=== PATIENT | male | born 1980 | race Caucasian/White ===

== ENCOUNTER 2019-06-11 09:26 | Outpatient (CLI) | payer MEDICAID, SELFPAY ==
[2019-06-11 10:14] LABS: HCT 48.6 % (40.0-50.0); HGB 16.7 g/dL (13.5-17.5)
[2019-06-11 11:26] LABS: Calculated LDL 61 mg/dL; Cholesterol 120 mg/dL (50-200); HDL Cholesterol 35 mg/dL (40-60); TSH 2.53 uIU/mL (0.36-3.74); Triglyceride 122 mg/dL (30-150)
== END 2019-06-11 09:46 ==
PROVIDERS: PCP Internal Medicine; Visit Provider Internal Medicine
DX: R63.5 Abnormal weight gain (principal); Z13.220 Encounter for screening for lipoid disorders; Z98.84 Bariatric surgery status
CPT/HCPCS: 36415; 80061; 84443; 85014; 85018

== ENCOUNTER 2022-06-21 02:18 | Outpatient (CLI) | payer MEDICAID, SELFPAY ==
[2022-06-21 10:55] LABS: HCT 48.7 % (40.0-50.0); HGB 16.6 g/dL (13.5-17.5); MCH 30.3 pg (27.0-33.0); MCHC 34.1 % (32.0-36.0); MCV 89 fL (80-95); Platelet Count 198 10^3/uL (130-400); RBC 5.47 10^6/uL (4.36-5.78); RDW 11.9 % (11.8-14.1); RDW-SD 38.8 fL; WBC 5.39 10^3/uL (4.4-10.8)
[2022-06-21 11:18] LABS: Hemoglobin A1C 5.1 % (<5.7)
[2022-06-21 12:14] LABS: ALT 37 U/L (16-63); AST 17 U/L (15-37); Albumin 4.2 g/dL (3.4-5.0); Alkaline Phosphatase 60 U/L (46-116); Anion Gap 6.1 mmol/L (3-11); BUN 23 mg/dL (7-18); Bilirubin, Total 0.9 mg/dL (0.2-1.0); CO2 28.9 mmol/L (21.0-32.0); CREATININE 0.9 mg/dL (0.70-1.30); Calcium 8.9 mg/dL (8.5-10.1); Calculated LDL 66 mg/dL (<100); Chloride 105 mmol/L (98-107); Cholesterol 127 mg/dL (<200); Estimated GFR 108.01 (mL/min/1.73m2); Glucose 96 mg/dL (74-106); HDL Cholesterol 39 mg/dL (40-60); Potassium 4.2 mmol/L (3.5-5.1); Sodium 140 mmol/L (136-145); Total Protein 7.6 g/dL (6.4-8.2); Triglyceride 111 mg/dL (<150); Vitamin B12 353 pg/mL (193-986)
[2022-06-22 11:15] LABS: Hepatitis C Ab w Rflx HCV PCR Negative (Negative)
== END 2022-06-21 02:19 | disposition home or self-care (01) ==
LOC: LBO 02:18
PROVIDERS: PCP Nurse Practitioner; Referring Provider Nurse Practitioner; Visit Provider Nurse Practitioner
DX: E66.9 Obesity, unspecified (principal); Z98.84 Bariatric surgery status; Z11.59 Encounter for screening for other viral diseases
CPT/HCPCS: 36415; 80053; 80061; 85027; 86803; 82607; 83036

== ENCOUNTER 2023-10-10 16:50 | Outpatient (CLI) | payer MEDICAID, SELFPAY ==
--- NOTE | 2023-10-10 16:45 | RT.EKG_ITS ---
APPROVED REPORT Exam: Resting ECG Reason for Exam: rare palpitations Patient Location: O HR:65 bpm ECG Measurements Heart Rate 65 AXIS MN 176 P 27 QRSd 104 QRS 32 QT 392 T 49 QTc 408 Conclusion Sinus rhythm...normal P axis, V-rate 50- 99 I have reviewed and interpreted ECG and agree with software generated interpretation.
== END 2023-10-10 16:51 | disposition home or self-care (01) ==
LOC: DI.KIM 16:51
PROVIDERS: PCP Nurse Practitioner; Visit Provider Nurse Practitioner
DX: G47.30 Sleep apnea, unspecified (principal); R00.2 Palpitations
CPT/HCPCS: 93010

== ENCOUNTER 2024-03-31 06:56 | Day surgery (SDC) | payer MEDICAID, SELFPAY ==
--- NOTE | 2024-03-30 13:26 | W.PM.DSUDISC ---
Date of service: 03/31/24 Time of Service: 08:06 Discharge Plan Disposition Patient Disposition: Home Condition: Good Discharge Details Reason For Visit: screening colonoscopy Attending Provider: Uday Orlando Primary Care Provider: Love Rios Home Meds and New Rx's Prescriptions: Continued multivitamin Tablet 1 tab PO DAILY Patient Comments: [employer] Nutritional Supplements Multi-Complete 45 with Iron) Discontinued bisacodyl 5 mg tablet,delayed release (DR/EC) 5 mg PO ONCE Qty: 4 0RF Rx Instructions: Per Colonoscopy bowel prep instructions polyethylene glycol 3350 17 gram/dose powder 238 g PO ONCE Qty: 238 0RF Rx Instructions: For Colonoscopy bowel prep, as directed by office Discharge Instructions Instructions: Diverticulosis Additional Instructions: JT, we are able to complete your colonoscopy today without much difficulty. I did not see any signs of tumors or polyps anywhere along the length of your colon. Incidentally, you do have a little bit of diverticulosis. Diverticula are little weak spots in the muscular part of the colon wall. They can get infected or inflamed. When that happens, we caught diverticulitis. During those episodes, patients typically have quite a bit of pain, usually on the left side of their abdomen. It is often times associated with fevers and feeling pretty ill. Usually, patients are treated with antibiotics. I hope you are is never bother you. I have attached a little bit of information here about diverticulosis in general. Basically, I recommend a high-fiber diet, and avoidance of symptoms of constipation. With a negative colonoscopy today, you will need another 1 in 10 years. 1. If tolerated, consume a soft, low fiber diet for 1-2 days. 2. Do not drive, drink alcohol, operate machinery, make critical decisions, or do activities that require coordination or balance for 24 hours. 3. Because air was put into your colon during the procedure, expelling air from your rectum (passing gas or farting) is normal. 4. You may not have a bowel movement for 1-3 days because of the colonoscopy prep. This is normal. 5. Go directly to the emergency room if you notice any of the following: Develop chills (warm to touch), or if you have a thermometer and your temperature is above 101 Difficulty breathing or difficultly swallowing Persistent vomiting Severe abdominal pain, other than gas cramps Severe chest pain Black, tarry stools Any bleeding ? exceeding one tablespoon 6. Call your physician if the site where your intravenous was started becomes red, swollen, painful, and warm to touch. 7. Your physician has reviewed your pre-procedure medications. Please continue to take those medications as previously ordered. You will be given specific information/education regarding any changes to your medications before leaving. Stand Alone Forms: Anesthesia Discharge InstDavid Aviles (DSU) Activity:: Activity as Tolerated Diet:: As Tolerated Discharge Orders Discharge Orders: Discharge Order (Routine); Ordered 03/30/24 Ordered By: Uday Orlando DS: Diagnosis Discharge Diagnosis (1) Encounter for screening colonoscopy: Status: Acute Asessment and Plan: Negative screening colonoscopy today; follow-up in 10 years
--- NOTE | 2024-03-30 13:27 | W.COLOREPORT ---
Date of service: 03/31/24 Time of Service: 08:09 Colonoscopy Report Date of procedure: 03/31/24 Pre-op diagnosis general: screening colonoscopy Post-op diagnosis procedure note: other (Diverticulosis) Procedure: colonoscopy Surgeon: Uday Orlando Anesthesia Type: General:No Airway Estimated blood loss (mL): 0 Pathology: none sent Complications: None Disposition: same day Indications: CHRIS is a 44 year old man who needs his first screening colonoscopy Prep: Miralax/Dulcolax Procedure Start Time: 07:30 Procedure End Time: 08:00 Retraction Time: 17 Findings: Occasional diverticulosis Procedure Description: After the induction of anesthesia, and with the patient in left lateral decubitus position, I began by performing an external anorectal exam.? Perineum and skin were normal, as was the anal verge.? There was no evidence of external hemorrhoids.? Next, I performed a digital rectal exam.? I did not appreciate any abnormal findings.? Next, I advanced a colonoscope into the rectal vault.? I performed retroflexion.? This appeared normal.? Using insufflation, I then advanced the colonoscope beyond the rectal folds and into the sigmoid colon before advancing towards the cecum.? The quality of the prep was adequate.? The scope was noted to be in the cecum by identification of the ileocecal valve and appendiceal orifice.? I then began withdrawing the colonoscope using repeated irrigation as necessary for full evaluation of the colonic mucosa. There were a few colonic diverticula, mostly in the sigmoid segment. ?Once the scope was withdrawn to the level of the rectum, great care was taken to examine portions of the rectal folds.? Finally, the scope was withdrawn and the patient was brought to the same-day surgery recovery unit as the anesthetic wore off. ?The findings and instructions were shared with the patient prior to discharge. Casper Bowel Prep Casper Bowel Prep Right Colon: 2 Left Colon: 2 Transverse Colon: 2 Total Score: 6
[2024-03-31 06:30] VITALS: BP 129/91; PULSE 74; RESP 18; TEMP 36.7; O2SAT 96
--- NOTE | 2024-03-31 06:47 | ANES.PREOP_ITS ---
General Info Date of Service Date Performed: 03/31/24 Height: 6 ft 5 in Weight: 182.5 kg Body Mass Index (BMI): 47.7 Surgical Procedure: Operation Date: 03/31/24 07:35 Proposed Procedure Side Surgeon p Colonoscopy Uday Orlando MD Meds Allergies and Home Medications Allergies Allergy/AdvReac Type Severity Reaction Status Date / Time clindamycin Allergy Intermediate Rash Verified 03/31/24 06:33 Penicillins Allergy Intermediate Rash Verified 03/31/24 06:33 Home Medication ?Medication ?Instructions ?Recorded multivitamin 1 tab PO DAILY 10/21/19 Current Visit Medications: Current Medications Generic Name Dose Route Start Last Admin Trade Name Freq PRN Reason Stop Dose Admin Ondansetron HCl 4 mg 03/30/24 13:28 Ondansetron 4 Mg/2 Ml Vial IVP 04/29/24 13:27 Q4H PRN PRN Nausea / Vomiting PFSH Active Problems Active Problems: Problem Status Onset Code Encounter for screening colonoscopy Acute Z12.11 BMI 45.0-49.9, adult Chronic Z68.42 Bariatric surgery status Chronic Z98.84 Fatigue Acute R53.83 Sleep apnea Acute ~2008 G47.30 Depression Chronic F32.9 Hypertension Chronic I10 Medical History Medical History Intermittent palpitations Medical History Comments:: adopted Surgical History Surgical History History of umbilical hernia repair x2 Status post phlebectomy (~01/2011) History of small bowel obstruction (~2010) With Reconstruction History of gastric bypass (~12/2008) History of cholecystectomy (~09/2005) History of tonsillectomy Tobacco Smoking/Tobacco Use Status: Never Alcohol Alcohol Intake: current Alcohol intake frequency: a few times a week Alcohol type: beer Substance Use Substance use: Never Substance use type: does not use Details: alcohol: t-7 Vital Signs and Lab Results Vital Signs Most Recent Vital Signs in EMR: Most Recent Vital Signs Temp Pulse Resp BP Pulse Ox 36.7 C 74 18 129/91 H 96 03/31/24 06:30 03/31/24 06:30 03/31/24 06:30 03/31/24 06:30 03/31/24 06:30 Lab Results Blood Type / Crossmatch: No Data to Display Complete Blood Count: No Data to Display Complete Metabolic Panel: No Data to Display Liver Function Panel: No Data to Display Coagulation Panel: No Data to Display Cardiac Panel: No Data to Display Arterial Blood Gas: No Data to Display Venous Blood Gas: No Data to Display Pancreas Panel: No Data to Display Thyroid Panel: No Data to Display Infectious Disease: No Data to Display Blood Cultures: No Data to Display Toxicology Panel: No Data to Display Imaging and Studies Imaging and Studies Study information below may be from another EMR and interpreted by another provider. Please see original notes in EMR for more complete details. EKG Summary: EKG PATIENT NAME: Huber Mcdonald (JT) UNIT #: [id number] ORDERING PROVIDER: Love Rojas NP PRIMARY CARE PROVIDER: LOVE ROJAS NP DATE/TIME OF SERVICE: 10/10/231652 : 1980 PERFORMING LOCATION: [facility] APPROVED REPORT Exam: Resting ECG Reason for Exam: rare palpitations Patient Location: O HR:65 bpm ECG Measurements Heart Rate 65 AXIS GA 176 P 27 QRSd 104 QRS 32 QT 392 T49 QTc 408 Conclusion Sinus rhythm...normal P axis, V-rate 50- 99 I have reviewed and interpreted ECG and agree with software generated interpretation. <Electronically signed by Sadiq Bower M.D. in [place]> E-Sign Date: 10/12/23 E-Sign Time: 1209 Anesthesia Assessment and Plan Anesthesia History Personal History: No History of Anesthesia Complications Family History: Other Exercise Tolerance Exercise Tolerance: Metabolic Equivalents>4 Pertinent Negatives Pertinent Negatives: No Symptoms of GERD, No Major Cardiovascular Symptoms or Complaints, No Major Pulmonary Symptoms or Complaints and No History of CVA/TIA Cardiac & Pulmonary Exam Cardiac Exam: Normal S1/S2 Heart Sounds Pulmonary Exam: Clear Bilateral Breath Sounds Implantable Cardiac Device Does patient have a Pacemaker or an ICD?: No Airway Exam Known Difficult Airway: No Mallampati Class: 2 Mouth Opening: Normal (> 3cm) Thyromental Distance: Greater than 3 cm Neck Range of Motion: Full ROM Neck Circumference: Normal Teeth Condition: Normal Dentition and Removable Dentures/Plates Upper ASA Classification ASA Score: ASA 3 Emergency Case?: No NPO Status NPO Status: NPO Clears >2 hours, Solids >8 hours Anesthesia Plan Resuscitation Status: Full Code Anesthesia Technique: General Anesthesia Airway Planned: Natural Airway Monitors Used: Standard Monitors
[2024-03-31] MEDS: Lactated Ringers 1,000 ML 80 ML IV (06:55)
[2024-03-31 07:20] VITALS: BMI 47.7
[2024-03-31 08:03] VITALS: BP 129/83; PULSE 74; RESP 16; TEMP 37; O2SAT 94
[2024-03-31 08:33] VITALS: BP 141/92; PULSE 64; RESP 18; TEMP 36.7; O2SAT 97
--- NOTE | 2024-03-31 08:39 | W.ANESPOSTOP ---
Postoperative Evaluation Date, Time and Location Date Performed: 03/31/24 Time Performed: 08:21 Patient Location: Day Surgery Unit Vital Signs Most Recent Imported Vital Signs: Most Recent Vital Signs Temp Pulse Resp BP Pulse Ox 36.7 C 64 18 141/92 H 97 03/31/24 08:33 03/31/24 08:33 03/31/24 08:33 03/31/24 08:33 03/31/24 08:33 Pain Score Most Recent Pain Score: Most Recent Pain Score Pain Level 0 03/31/24 08:33 Assessment Mental Status: Awake (Alert & Oriented to Patient Baseline) Airway and Respiratory Function: Patent airway with normal (patient baseline) respiratory exam Cardiovascular Function: Hemodynamically Stable Hydration Status: Adequately Hydrated Nausea & Vomiting: No Nausea or Vomiting Pain: Pt. Denies Any Pain Peripheral Nerve Block: Patient did not receive a nerve block
== END 2024-03-31 09:02 | disposition home or self-care (01) ==
LOC: SUR 06:56
PROVIDERS: PCP Nurse Practitioner; Visit Provider Surgery
PROC: 0DJD8ZZ Inspection of Lower Intestinal Tract, Via Natural or Artificial Opening Endoscopic (ICD-10-PCS; CPT 45378; principal; 2024-03-31 07:30)
DX: Z12.11 Encounter for screening for malignant neoplasm of colon (principal); I10 Essential (primary) hypertension; G47.30 Sleep apnea, unspecified; K57.30 Diverticulosis of large intestine without perforation or abscess without bleeding
CPT/HCPCS: 45378; J2704